=== PATIENT | male | born 1990 | race Caucasian/White ===

== ENCOUNTER 2016-09-28 10:01 | Emergency (ER) | payer BC ==
[~2016-09-28] VITALS: Ht 167.6 cm; Wt 88.0 kg
[~2016-09-28 10:01] MED LIST: ACET-514 PO; ALBU8.5H3 INH; AZIT250T94 PO; CLOT30CR24 TOP; DOXY100T20 PO; IBUP-1542 PO; IBUP800T25 PO; NO MEDS; PHEN-538 PO; PRED20TA PO; PROM6.25 PO
[2016-09-28 10:04] VITALS: Ht 167.6 cm; Wt 88.0 kg
[2016-09-28] MEDS ORDERED: IBUPROFEN 600 MG TAB PO ONE (11:30)
--- NOTE | 2016-09-28 12:23 | RADRPT ---
PROCEDURE: XR Knee. CLINICAL INDICATION: Right knee pain. Trauma. TECHNIQUE: 3 views of the right knee are available for review. COMPARISON: None available FINDINGS: Subtle thin linear nondisplaced fracture of the lateral tibial plateau is identified. No significan t depression is seen at this time. The remaining osseous structures are intact. No other abnormali ty is identified. Moderate suprapatellar joint effusion is identified. IMPRESSION: 1. Subtle thin hairline fracture of the lateral tibial plateau. 2. Moderate suprapatellar joint effusion. RPTAT: PP .Norman Ledesma MD, Date Time Electronically viewed and signed by .Norman Ledesma MD, on 09/28/2016 12:22 .B/
[2016-09-28] MEDS ORDERED: IBUP-1542 PO (12:55)
--- NOTE | 2016-09-28 12:59 | ERD ---
ER Documentation Chief Complaint Date/Time DATE: 09/28/16 TIME: 12:58 Chief Complaint rt leg /rt knee pain s/p fall yesterday HPI 25-year-old male fell yesterday or awkward movement of his right knee and caught himself and complains of right knee pain. Denies restricted range of motion weakness. His pain is primarily with walking. Denies any fevers, redness, bleeding. ROS All systems reviewed and are negative except as per history of present illness. Medications Home Meds Active Scripts Ibuprofen* (Motrin*) 600 Mg Tab, 600 MG PO Q6, #20 TAB Prov:ANURADHA SIDDIQUI MD 09/28/16 Ibuprofen* (Motrin*) 800 Mg Tab, 800 MG PO Q6, #30 TAB Prov:DONNY BOND PA-C 05/31/16 Doxycycline Hyclate* (Doxycycline Hyclate*) 100 Mg Tablet.dr, 100 MG PO BID for 10 Days, TAB Prov:DONNY BOND PA-C 05/31/16 Phenazopyridine Hcl* (Pyridium*) 200 Mg Tab, 200 MG PO TID Y for URINARY PAIN, # 6 TAB Prov:VICTOR HUGO YUAN NP 02/26/16 Clotrimazole* (Clotrimazole* AF) 1% - 30 Gm Cream.gm., 1 APPLIC TOP BID for 7 Days, TUB Prov:VICTOR HUGO YUAN NP 02/26/16 Albuterol Sulfate* (Proair HFA*) 8.5 Gm Hfa.aer.ad, 2 PUFF INH Q4H Y for WHEEZING AND SOB, #1 INHALER Prov:MARIELA ZHENG DO 09/08/15 Ibuprofen* (Ibuprofen*) 600 Mg Tablet, 600 MG PO Q8, #20 TAB Prov:MARIELA ZHENG DO 09/08/15 Acetaminophen (Acetaminophen) 325 Mg Tablet, 650 MG PO Q6, #30 TAB Prov:MARIELA ZHENG DO 09/08/15 Promethazine w/Codeine* (Phenergan w/Codeine* Syrup) 5 Ml Syrup, 10 ML PO Q4H Y for COUGH, #180 ML Prov:MARIELA ZHENG DO 09/08/15 Prednisone (Prednisone) 20 Mg Tablet, 20 MG PO DAILY, #3 TAB Prov:MARIELA ZHENG DO 09/08/15 Azithromycin* (Zithromax*) 250 Mg Tablet, 250 MG PO .BO DIRECTED, #6 TAB TAKE 500 MG (2 TABS) THE FIRST DAY THEN 250 MG (1 TAB) DAYS 2-5 Prov:MARIELA ZHENG DO 09/08/15 Reported Medications [No Meds] No Conflict Check 10/15/10 Allergies Allergies: Coded Allergies: No Known Drug Allergies (Verified Allergy, Mild, 05/31/16) PMhx/Soc History of Surgery: No Anesthesia Reaction: No Hx Neurological Disorder: No Hx Respiratory Disorders: No Hx Cardiac Disorders: No Hx Psychiatric Problems: No Hx Miscellaneous Medical Probl: No Hx Alcohol Use: No (socially) Hx Substance Use: No Hx Tobacco Use: No Physical Exam Vitals Vital Signs Date Time Temp Pulse Resp B/P Pulse Ox O2 Delivery O2 Flow Rate FiO2 09/28/16 10:04 98.0 117 18 130/84 99 Physical Exam Const: [], [id number] per Head: Atraumatic Eyes: Normal Conjunctiva ENT: Normal External Ears, Nose and Mouth. Neck: Full range of motion..~ No meningismus. Resp: Clear to auscultation bilaterally Cardio: Regular rate and rhythm, no murmurs Abd: Soft, non tender, non distended. Normal bowel sounds Skin: No petechiae or rashes Back: No midline or flank tenderness Ext: No cyanosis, or edema. No tenderness on the right distal right knee joint. There is no erythema, or significant effusion. There is no calf swelling or Homans sign, no signs of ischemia or deficits Neur: Awake and alert Psych: Normal Mood and Affect Results 24 hrs Current Medications Medications (Trade) Dose Ordered Sig/Tatyana Route PRN Reason Start Time Stop Time Status Last Admin Dose Admin Ibuprofen (Motrin) 600 mg ONCE ONCE PO 09/28/16 11:30 09/28/16 11:31 DC 09/28/16 11:49 Procedures/MDM X-ray right knee 3V Interpreted by me: Bones: There is a hairline fracture visible of the lateral tibial plateau. Joints: [No dislocation] Foreign body: [None]. Nondisplaced hairline fracture of the right tibial plateau. Patient has signs of a hairline fracture of right tibial plateau without evidence of septic arthritis, tendon or neurologic deficit, displacement or dislocation. He will be treated with ibuprofen and instructions to follow-up with orthopedist this week. He is placed in a right knee immobilizer and given crutches and instructions for nonweightbearing. Patient is neurovascular intact after knee immobilizer. Patient advised he may need authorization from primary care doctor Departure Diagnosis: Primary Impression: Knee fracture, right Condition: Stable Patient Instructions: Fracture, Knee Referrals: ILA ROCHA MD, [place] SOO MD Additional Instructions: There is a hairline fracture seen on the x-ray. See orthopedist for follow-up. May need authorization from primary doctor. Limit weightbearing activity until orthopedic evaluation. ANURADHA SIDDIQUI MD Sep 28, 2016 12:59
== END 2016-09-28 20:23 | disposition home or self-care (01) ==
LOC: FTE 10:01
DX: S82.124A Nondisplaced fracture of lateral condyle of right tibia, initial encounter for closed fracture (principal); W18.39XA Other fall on same level, initial encounter; Y92.9 Unspecified place or not applicable
CPT/HCPCS: 29505; 73562; 99283; Z7610

== ENCOUNTER 2017-04-10 11:06 | Emergency (ER) | END 2017-04-10 13:00 | disposition home or self-care (01) | DX: R30.0 Dysuria (principal) | CPT/HCPCS: 81003; Z7502 ==

== ENCOUNTER 2017-08-19 21:04 | Emergency (ER) | END 2017-08-19 21:23 | disposition home or self-care (01) ==

== ENCOUNTER 2018-01-22 14:39 | Emergency (ER) | END 2018-01-22 17:02 | disposition home or self-care (01) ==

== ENCOUNTER 2018-05-16 12:24 | Emergency (ER) | END 2018-05-16 13:17 | disposition home or self-care (01) ==

== ENCOUNTER 2018-12-28 20:07 | Emergency (ER) | payer BC ==
[~2018-12-28] VITALS: Ht 165.1 cm; Wt 81.0 kg
[~2018-12-28 20:07] MED LIST changes: -ALBU8.5H3 INH; +ALBU8.5H8 INH; +AZIT250T PO; -AZIT250T94 PO; +AZIT500T3 PO; +BENZ-6 PO; +CETI10CA PO; +HYDR-4011 PO; -IBUP800T25 PO; +IBUP800T48 PO; +LOPE2CAP PO; +MUPI22OI2 TOP; +PHEN-537 PO; +PROM6.2515 PO
[2018-12-28 20:31] VITALS: Ht 165.1 cm; Wt 81.0 kg
--- NOTE | 2018-12-28 21:47 | ERD ---
ER Documentation Chief Complaint Chief Complaint Painful urination X 1 wk HPI Patient is a 28-year-old male, no past medical history, presents to the ER for concerns of dysuria x1 week. Patient denies any fevers, chills, nausea, vomiting dysuria, frequency, urgency or flank pain. Patient is sexually active with his girlfriend. Patient denies any penile discharge or testicular pain. ROS All systems reviewed and are negative except as per history of present illness. Medications Home Meds Active Scripts Phenazopyridine Hcl* (Pyridium*) 100 Mg Tab, 100 MG PO TID PRN for URINARY PAIN, #8 TAB Prov:CHANEL WILSON PA-C 12/28/18 Ibuprofen* (Motrin*) 600 Mg Tab, 600 MG PO Q8, #15 TAB Prov:LEELEE WEBSTER MD 05/16/18 Promethazine Hcl* (Promethazine Hcl* Syrup) 6.25 Mg/5 Ml Syrup, 6.25 MG PO QHS PRN for COUGH, #60 ML Prov:LEELEE WEBSTER MD 05/16/18 Azithromycin* (Zithromax*) 250 Mg Tablet, 250 MG PO .ZPACK DIRECTED, #6 TAB TAKE 500 MG (2 TABS) THE FIRST DAY THEN 250 MG (1 TAB) DAYS 2-5 Prov:LEELEE WEBSTER MD 05/16/18 Ibuprofen* (Motrin*) 600 Mg Tab, 600 MG PO Q6, #15 TAB Prov:ANURADHA SIDDIQUI MD 01/22/18 Loperamide Hcl* (Imodium*) 2 Mg Capsule, 2 MG PO .AFTER EA LOOSE BM PRN for DIARRHEA, #10 TAB Prov:ANURADHA SIDDIQUI MD 01/22/18 Azithromycin* (Zithromax*) 500 Mg Tablet, 500 MG PO DAILY for 3 Days, TAB Prov:ANURADHA SIDDIQUI MD 01/22/18 Cetirizine Hcl* (Zyrtec*) 10 Mg Capsule, 10 MG PO DAILY, #30 TAB.CHEW Prov:VICTOR HUGO YUAN NP 08/19/17 Benzonatate* (Tessalon Perle*) 100 Mg Capsule, 100 MG PO Q8H PRN for COUGH, #20 CAP Prov:VICTOR HUGO YUAN PROGRAM MGR 08/19/17 Albuterol Sulfate* (Proair HFA*) 8.5 Gm Hfa.aer.ad, 2 PUFF INH Q4, #1 INHALER Prov:VICTOR HUGO YUAN PROGRAM MGR 08/19/17 Azithromycin* (Zithromax*) 250 Mg Tablet, 250 MG PO .ZPACK DIRECTED, #6 TAB TAKE 500 MG (2 TABS) THE FIRST DAY THEN 250 MG (1 TAB) DAYS 2-5 Prov:VICTOR HUGO YUAN PROGRAM MGR 08/19/17 Phenazopyridine Hcl* (Pyridium*) 100 Mg Tab, 100 MG PO TID PRN for URINARY PAIN, #8 TAB Prov:FAUSTINO MURRY PA-C 04/10/17 Doxycycline Hyclate* (Doxycycline Hyclate*) 100 Mg Tablet., 100 MG PO BID for 10 Days, #20 TAB Prov:FAUSTINO MURRY PA-C 04/10/17 Ibuprofen* (Motrin*) 600 Mg Tab, 600 MG PO Q6, #20 TAB Prov:ANURADHA SIDDIQUI MD 09/28/16 Ibuprofen* (Motrin*) 800 Mg Tab, 800 MG PO Q6, #30 TAB Prov:DONNY BOND PA-C 05/31/16 Doxycycline Hyclate* (Doxycycline Hyclate*) 100 Mg Tablet., 100 MG PO BID for 10 Days, TAB Prov:DONNY BOND PA-C 05/31/16 Phenazopyridine Hcl* (Pyridium*) 200 Mg Tab, 200 MG PO TID PRN for URINARY PAIN, #6 TAB Prov:VICTOR HUGO YUAN NP 02/26/16 Clotrimazole* (Clotrimazole* AF) 1% - 30 Gm Cream.gm., 1 APPLIC TOP BID for 7 Days, TUB Prov:VICTOR HUGO YUAN PROGRAM MGR 02/26/16 Albuterol Sulfate* (Proair HFA*) 8.5 Gm Hfa.aer.ad, 2 PUFF INH Q4H PRN for WHEEZING AND SOB, #1 INHALER Prov:MARIELA ZHENG DO 09/08/15 Ibuprofen* (Ibuprofen*) 600 Mg Tablet, 600 MG PO Q8, #20 TAB Prov:MARIELA ZHENG DO 09/08/15 Acetaminophen (Acetaminophen) 325 Mg Tablet, 650 MG PO Q6, #30 TAB Prov:MARIELA ZHENG DO 09/08/15 Promethazine w/Codeine* (Phenergan w/Codeine* Syrup) 5 Ml Syrup, 10 ML PO Q4H PRN for COUGH, #180 ML Prov:MARIELA ZHENG DO 09/08/15 Prednisone (Prednisone) 20 Mg Tablet, 20 MG PO DAILY, #3 TAB Prov:MARIELA ZHENG DO 09/08/15 Azithromycin* (Zithromax*) 250 Mg Tablet, 250 MG PO .ZPACK DIRECTED, #6 TAB TAKE 500 MG (2 TABS) THE FIRST DAY THEN 250 MG (1 TAB) DAYS 2-5 Prov:MARIELA ZHENG DO 09/08/15 Reported Medications [No Meds] No Conflict Check 10/15/10 Allergies Allergies: Coded Allergies: No Known Drug Allergies (Verified Allergy, Mild, 05/16/18) PMhx/Soc Medical and Surgical Hx: pt denies Medical Hx, pt denies Surgical Hx History of Surgery: No Anesthesia Reaction: No Hx Neurological Disorder: No Hx Respiratory Disorders: No Hx Cardiac Disorders: No Hx Psychiatric Problems: No Hx Miscellaneous Medical Probl: No Hx Alcohol Use: No (socially) Hx Substance Use: No Hx Tobacco Use: No Smoking Status: Never smoker FmHx Family History: No diabetes Physical Exam Vitals Vital Signs Date Temp Pulse Resp B/P (MAP) Pulse Ox O2 O2 Flow FiO2 Time Delivery Rate 12/28/18 99.1 107 18 135/72 97 20:31 (93) Physical Exam GENERAL: Well-developed, well-nourished male. Appears in no acute distress. HEAD: Normocephalic, atraumatic. EYES: Pupils are equally reactive bilaterally. EOMs grossly intact. No conjunctival erythema. ENT: Moist mucous membranes. No uvula deviation. No kissing tonsils. NECK: Supple. No meningismus. Normal range of motion of the neck. LUNG: Clear to auscultation bilaterally. No rhonchi, wheezing, rales or coarse breath sounds. HEART: Regular rate and rhythm. No murmurs, rubs or gallops. : Patient declined BACK: No midline tenderness. No CVA tenderness. EXTREMITIES: Equal pulses bilaterally. No peripheral clubbing, cyanosis or edema. No unilateral leg swelling. NEUROLOGIC: Alert and oriented. Moving all four extremities without any diffi culty. Normal speech. Steady gait. SKIN: Normal color. Warm and dry. No rashes or lesions. Results 24 hrs Laboratory Tests Test 12/28/18 21:34 Bedside Urine pH (LAB) 5.5 Bedside Urine Protein (LAB) Negative Bedside Urine Glucose (UA) Negative Bedside Urine Ketones (LAB) Negative Bedside Urine Blood Negative Bedside Urine Nitrite (LAB) Negative Bedside Urine Leukocyte Esterase (L Negative Procedures/MDM MEDICAL DECISION MAKING: This is a 28-year-old male presents ER for concerns of dysuria x1 week. Who presents with pain with urination. Vital signs were reviewed. Patient was afebrile. Urine dip was negative for nitrites, leukocytes and hematuria. Urine will be sent for gonorrhea and Chlamydia testing. Did offer patient treatment at this time for gonorrhea chlamydia however he deferred. Patient wishes to wait for results. Urine will also be sent for culture. At this time for the patient presentation is most consistent with dysuria. Low suspicion for nephrolithiasis, appendicitis, diverticulitis, constipation, testicular torsion. PRESCRIPTIONS: Pyridium DISCHARGE: At this time, patient is stable for discharge and outpatient management. I have instructed the patient to follow-up with his/her primary care physician in 1-2 days. Patient should repeat UA in 2 weeks to check for resolution of urinary tract infection. If symptoms persist, patient may need to see a specialist for further examinations and testing. I have instructed the patient to promptly return to the ER at any time for any new or worsening symptoms including increased pain, fever, nausea, vomiting, urinary changes or weakness. The patient and/or family expressed understanding of and agreement with this plan. All questions were answered. Home care instructions were provided. Disclaimer: Inadvertent spelling and grammatical errors are likely due to EHR/dictation software use and do not reflect on the overall quality of patient care. Also, please note that the electronic time recorded on this note does not necessarily reflect the actual time of the patient encounter. Departure Diagnosis: Primary Impression: Dysuria Condition: Fair Patient Instructions: Dysuria Referrals: HORACIO CARSON MD (PCP) Additional Instructions: Call your primary care doctor TOMORROW for an appointment during the next 1-2 days.See the doctor sooner or return here if your condition worsens before your appointment time. CHANEL WILSON PA-C Dec 28, 2018 21:46
[2018-12-28 21:51] VITALS: BP 132/94; PULSE 104; RESP 19
== END 2018-12-28 21:52 | disposition home or self-care (01) ==
LOC: FTE 20:07
DX: R30.0 Dysuria (principal)
CPT/HCPCS: 81003; 87086; 87591; Z7502; 99283

== ENCOUNTER 2019-01-16 19:02 | Emergency (ER) | payer BC ==
[~2019-01-16] VITALS: Ht 162.6 cm; Wt 83.2 kg
[2019-01-16 19:08] VITALS: BP 147/92; PULSE 117; RESP 18; Ht 162.6 cm; Wt 83.2 kg
[2019-01-16] MEDS ORDERED: DIPHTH/TET/ACEL PERTUSS (ADULT) 0.5 ML VIAL IM* ONE (20:30)
== END 2019-01-16 20:30 | disposition home or self-care (01) ==
LOC: FTE 19:02
DX: T21.24XA Burn of second degree of lower back, initial encounter (principal); T21.25XA Burn of second degree of buttock, initial encounter; X03.3XXA Fall due to controlled fire, not in building or structure, initial encounter; Y92.9 Unspecified place or not applicable; Z23 Encounter for immunization
CPT/HCPCS: 90471; 90715; Z7502

== ENCOUNTER 2019-02-06 14:50 | Emergency (ER) | payer BC ==
[~2019-02-06] VITALS: Ht 165.1 cm; Wt 82.4 kg
[2019-02-06 14:53] VITALS: BP 118/72; PULSE 96; RESP 18; Ht 165.1 cm; Wt 82.4 kg
== END 2019-02-06 17:08 | disposition home or self-care (01) ==
LOC: FTE 14:50
DX: R30.0 Dysuria (principal)
CPT/HCPCS: 81003; 87086; Z7502; 99283